=== PATIENT | female | born 1945 | race Caucasian/White ===

== ENCOUNTER → 2018-03-01 | Outpatient (CLI) | payer MEDICARE ==
--- NOTE | 2018-03-01 11:00 | Diagnostic Imaging Report ---
EXAM: DXA BONE DENSITY INDICATIONS: OSTEOPOROSIS COMPARISON: 01/04/2016 FINDINGS: Left forearm one third bone mineral density (BMD) (g/cm2):0.6 Lumbar T-score (standard deviation relative to young adult mean BMD): -1.5 Lumbar Z-score (standard deviation relative to age-matched control group):0.7 Proximal left femur bone (femoral neck) mineral density (BMD) (g/cm2): 0.66 Femur T-score (standard deviation relative to young adult mean BMD): -1.7 Femur Z-score (standard deviation relative to age-matched control group):0.2 Lumbar bone mineral density (BMD) (g/cm2):0.92 Lumbar T-score (standard deviation relative to young adult mean BMD): -1.1 Lumbar Z-score (standard deviation relative to age-matched control group):1.1 Change since prior exam (%): Femur:1.9% Lumbar spine:Not available Left forearm: Not available CONCLUSION: Bone mineral density in the left femur is classified as osteoporosis as demonstrated by the mineral density of the lumbar spine. Fracture risk is high. World Health Organization Classification: *The Z-score is provided for informational purposes. The T-score is preferable for clinical decisions. When comparing exams, a change of >4% is considered statistically significant. SUGGESTED RECOMMENDATIONS: Normal \T\ Osteopenia:Consideration should be given to use of calcium supplementation, daily multiple vitamins and adequate exercise, as preventive measures against osteoporosis, if clinically indicated. Osteoporosis \T\ Severe Osteoporosis:In addition to the above, consideration should be given to medical therapy against osteoporosis, if clinically indicated. Dictated by: Woody Zacarias M.D. on 03/01/2018 at 11:01 Electronically approved by: Woody Zacarias M.D. on 03/01/2018 at 11:01
== END ==
LOC: DX 08:55
PROVIDERS: ATTEND Family Medicine
DX: M81.0 Age-related osteoporosis without current pathological fracture (principal)
CPT/HCPCS: 77080

== ENCOUNTER → 2018-08-30 | Outpatient (CLI) | payer MEDICARE | LOC: MAMMO 08:33 | PROVIDERS: ATTEND Family Medicine | DX: Z12.31 Encounter for screening mammogram for malignant neoplasm of breast (principal) | CPT/HCPCS: 77067 ==

== ENCOUNTER → 2019-09-10 | Outpatient (CLI) | payer MEDICARE | LOC: MAMMO 08:48 | PROVIDERS: ATTEND Family Medicine | DX: Z12.31 Encounter for screening mammogram for malignant neoplasm of breast (principal) | CPT/HCPCS: 77067 ==

== ENCOUNTER → 2020-09-17 | Outpatient (CLI) | payer MEDICARE | LOC: MAMMO 14:17 | PROVIDERS: ATTEND Family Medicine | DX: Z12.31 Encounter for screening mammogram for malignant neoplasm of breast (principal) | CPT/HCPCS: 77067 ==

== ENCOUNTER → 2020-09-28 | Outpatient (CLI) | payer MEDICARE ==
--- NOTE | 2020-09-28 10:06 | Diagnostic Imaging Report ---
Exam: Bone mineral density study. History: Osteopenia. Comparison: March 01, 2018 Discussion: Evaluation of the left hip and lumbar spine was performed utilizing DEXA Hologic bone densitometer. The study is technically adequate. Radiopaque material in 2 of the lumbar vertebral bodies. Left hip total bone mineral density: 0.767gm/cm2, T-score is -1.4, Z-score is 0.3. Left hip femoral neck bone mineral density: 0.582gm/cm2, T-score is -2.4, Z-score is -0.4. Lumbar spine total bone mineral density:1.000gm/cm2, T-score is-0.3, Z-score is 2.0. Impression: 1. Osteopenia of the left hip, fracture risk is increased 2. Normal bone mineral density of the lumbar spine, fracture risk is not increased. The BMD change versus baseline is 2.9% and the BMD change versus previous 0.9% . Least significant change (LSC) for bone mineral density as provided by bowling ball patcher is 0.023 g/cm2 for lumbar spine and 0.027 g/cm2 for total hip. 10 -year fracture risk per WHO Fracture Risk Assessment Tool (FRAX) for: Not reported because patient treated for osteoporosis The patient's fracture risk is compared to an age-matched control. Medical evaluation for secondary causes of low bone bone mineral density may be appropriate. Correlate clinically for the necessity and timing of the next bone mineral density study. Signed by: Dr. Bret Marin M.D. on 09/28/2020 10:03 AM
== END ==
LOC: DX 08:31
PROVIDERS: ATTEND Family Medicine
DX: M85.88 Other specified disorders of bone density and structure, other site (principal); Z91.89 Other specified personal risk factors, not elsewhere classified
CPT/HCPCS: 77080

== ENCOUNTER → 2021-09-16 | Outpatient (CLI) | payer MEDICARE | LOC: MAMMO 13:12 | PROVIDERS: ATTEND Family Medicine | DX: Z12.31 Encounter for screening mammogram for malignant neoplasm of breast (principal); M85.88 Other specified disorders of bone density and structure, other site | CPT/HCPCS: 77067; 77080 ==

== ENCOUNTER → 2022-09-26 | Outpatient (CLI) | payer MEDICARE | LOC: MAMMO 13:47 | PROVIDERS: ATTEND Family Medicine | DX: Z12.31 Encounter for screening mammogram for malignant neoplasm of breast (principal); M85.88 Other specified disorders of bone density and structure, other site | CPT/HCPCS: 77067; 77080 ==

== ENCOUNTER → 2023-09-25 | Outpatient (REF) | payer MEDICARE | LOC: MAMMO 12:52 | PROVIDERS: ATTEND Family Medicine | DX: Z12.31 Encounter for screening mammogram for malignant neoplasm of breast (principal) | CPT/HCPCS: 77067 ==

== ENCOUNTER → 2024-03-22 | Outpatient (REF) | payer MEDICARE | LOC: US 13:32 | PROVIDERS: ATTEND Family Medicine | DX: R22.41 Localized swelling, mass and lump, right lower limb (principal) | CPT/HCPCS: 76882 ==

== ENCOUNTER → 2024-09-25 | Outpatient (REF) | payer MEDICARE | LOC: MAMMO 08:49 | PROVIDERS: ATTEND Family Medicine | DX: Z12.31 Encounter for screening mammogram for malignant neoplasm of breast (principal); M85.88 Other specified disorders of bone density and structure, other site | CPT/HCPCS: 77067; 77080 ==